=== PATIENT | male | born 1995 | race Caucasian/White ===

== ENCOUNTER 2017-07-17 09:58 | Emergency (ER) | payer BC, OTHER ==
[~2017-07-17] VITALS: Ht 185.4 cm; Wt 111.0 kg
[~2017-07-17 09:58] MED LIST: XANA1TAB6 PO
[2017-07-17 10:02] VITALS: BP 164/97; PULSE 96; RESP 16; TEMP 98.3; O2SAT 99
[2017-07-17] MEDS ORDERED: XANA1TAB2 PO (10:10)
--- NOTE | 2017-07-17 10:46 | PD ---
HPI Chief Complaint: Chest Pain Time Seen by Provider: 10:28 Travel History International Travel<30 days: No Contact w/Intl Traveler<30days: No Traveled to known affect area: No History of Present Illness HPI 22-year-old male came to the emergency room with history of midsternal chest pain that started this morning when he woke up. Patient describes the pain in the center and slightly parasternal both sides. There is no other radiation to the pain. No associated shortness of breath or cough. Pain he describes as slight burning. It's worse when he leans forward. No history of syncopal episode. Currently if he doesn't move the pain is 1 out of 10. Vital signs are stable. He is otherwise a relatively healthy person. He has been having some mid back pain between his shoulder blades for past 6 weeks. That pain is much better today. PFSH Past Medical History Narrative Medical List of his past medical, surgical, social and family history is reviewed from the nursing note. Anxiety: Yes Diminished Hearing: No Immunizations Current: Yes Influenza Vaccination: No Social History Alcohol Use: No Tobacco Use: No Substance Use: No Allergies-Medications (Allergen,Severity, Reaction): Coded Allergies: acetaminophen (Unverified Allergy, Mild, HIVES, 07/17/17) hydrocodone (Unverified Allergy, Mild, HIVES, 07/17/17) Comments List of his allergies reviewed from the nursing note. Reported Meds & Prescriptions Reported Meds & Active Scripts Active Reported Xanax (Alprazolam) 1 Mg Tab 1 Mg PO Q6H PRN Narrative Medication List of his home medications reviewed from the nursing note. Review of Systems Except as stated in HPI: all other systems reviewed are Neg Cardiovascular: Positive: Chest Pain or Discomfort Physical Exam Narrative GENERAL: Awake, alert, no obvious distress SKIN: Focused skin assessment warm/dry. HEAD: Atraumatic. Normocephalic. EYES: Pupils equal and round. No scleral icterus. No injection or drainage. ENT: No nasal bleeding or discharge. Mucous membranes pink and moist. NECK: Trachea midline. No JVD. CARDIOVASCULAR: Regular rate and rhythm. No murmur appreciated. RESPIRATORY: No accessory muscle use. Clear to auscultation. Breath sounds equal bilaterally. GASTROINTESTINAL: Abdomen soft, non-tender, nondistended. Hepatic and splenic margins not palpable. MUSCULOSKELETAL: No obvious deformities. No clubbing. No cyanosis. No edema. NEUROLOGICAL: Awake and alert. No obvious cranial nerve deficits. Motor grossly within normal limits. Normal speech. PSYCHIATRIC: Appropriate mood and affect; insight and judgment normal. Data Data Last Documented VS Orders Orders Electrocardiogram (07/17/17 ) Basic Metabolic Panel (Bmp) (07/17/17 11:09) Complete Blood Count With Diff (07/17/17 11:09) Troponin I (07/17/17 11:09) Lipase (07/17/17 11:09) Chest, Single Ap (07/17/17 11:09) Ecg Monitoring (07/17/17 11:09) Bilateral Bp Monitoring (07/17/17 11:09) Iv Access Insert/Monitor (07/17/17 11:09) Oximetry (07/17/17 11:09) Oxygen Administration (07/17/17 11:09) Sodium Chloride 0.9% Flush (Ns Flush) (07/17/17 11:15) Ed Discharge Order (07/17/17 12:03) Labs Laboratory Tests Test 07/17/17 11:15 White Blood Count 5.2 TH/MM3 Red Blood Count 5.67 MIL/MM3 Hemoglobin 16.6 GM/DL Hematocrit 50.5 % Mean Corpuscular Volume 88.9 FL Mean Corpuscular Hemoglobin 29.3 PG Mean Corpuscular Hemoglobin Concent 32.9 % Red Cell Distribution Width 12.7 % Platelet Count 175 TH/MM3 Mean Platelet Volume 9.0 FL Neutrophils (%) (Auto) 74.4 % Lymphocytes (%) (Auto) 18.2 % Monocytes (%) (Auto) 5.6 % Eosinophils (%) (Auto) 1.2 % Basophils (%) (Auto) 0.6 % Neutrophils # (Auto) 3.8 TH/MM3 Lymphocytes # (Auto) 0.9 TH/MM3 Monocytes # (Auto) 0.3 TH/MM3 Eosinophils # (Auto) 0.1 TH/MM3 Basophils # (Auto) 0.0 TH/MM3 CBC Comment DIFF FINAL Differential Comment Blood Urea Nitrogen 13 MG/DL Creatinine 0.94 MG/DL Random Glucose 100 MG/DL Calcium Level 9.0 MG/DL Sodium Level 140 MEQ/L Potassium Level 4.0 MEQ/L Chloride Level 105 MEQ/L Carbon Dioxide Level 26.8 MEQ/L Anion Gap 8 MEQ/L Estimat Glomerular Filtration Rate 99 ML/MIN Troponin I LESS THAN 0.02 NG/ML Lipase 133 U/L MDM Medical Decision Making Medical Screen Exam Complete: Yes Emergency Medical Condition: Yes Medical Record Reviewed: Yes Interpretation(s) Twelve-lead EKG is reviewed by me. Normal sinus rhythm, normal axis, nonspecific ST-T wave changes. Heart rate of 98 bpm. Differential Diagnosis ACS, atypical chest pain, muscular skeletal chest pain, pericarditis Narrative Course 12:06 PM blood test results of back and within acceptable limits. I'm comfortable discharging this patient home. He does not have any risk factors for coronary artery disease. I explained to the patient that his pain could be musculoskeletal. He is comfortable going home. Procedures EKG Prior to Arrival: No Diagnosis Primary Impression: Atypical chest pain Referrals: Primary Care Physician Additional Instructions: Take Motrin/ibuprofen/Advil for your pain. If symptoms do not resolve in next 2 days follow-up with your primary care. If symptoms worsen return to the ER. Med/Other Pt SpecificInfo: No Change to Meds Disposition: 01 DISCHARGE HOME Condition: Stable Jimena Patel MD Jul 17, 2017 10:46
[2017-07-17] MEDS ORDERED: SODIUM CHLORIDE 0.9% FLUSH 10 ML FLUSH IVF PRN (11:15)
[2017-07-17 11:22] VITALS: BP 182/77; PULSE 97; RESP 18; O2SAT 98
[2017-07-17 11:23] LABS: AUTOMATED NEUTROPHIL # 3.8 TH/MM3 (1.8-7.7); BASOPHIL % 0.6 % (0.0-2.0); EOSINOPHIL # 0.1 TH/MM3 (0-0.4); EOSINOPHIL % 1.2 % (0.0-4.0); HEMATOCRIT 50.5 % (39.0-51.0); HEMO FLAGS DIFF FINAL; LYMPH % 18.2 % (9.0-44.0); LYMPHOCYTE # 0.9 TH/MM3 (1.0-4.8); MEAN CELL VOLUME 88.9 FL (80.0-100.0); MEAN CORPUSCULAR HEMOGLOBIN 29.3 PG (27.0-34.0); MEAN CORPUSCULAR HGB CONC 32.9 % (32.0-36.0); MONO % 5.6 % (0.0-8.0); NEUT % 74.4 % (16.0-70.0); PLATELET COUNT 175 TH/MM3 (150-450); RED BLOOD COUNT 5.67 MIL/MM3 (4.50-5.90); RED CELL DISTRIBUTION WIDTH 12.7 % (11.6-17.2); WHITE BLOOD COUNT 5.2 TH/MM3 (4.0-11.0)
[2017-07-17 11:33] LABS: CHLORIDE 105 MEQ/L (98-107); SODIUM (NA) 140 MEQ/L (136-145)
[2017-07-17 11:36] LABS: ANION GAP 8 MEQ/L (5-15); BICARBONATE 26.8 MEQ/L (21.0-32.0); BLOOD UREA NITROGEN 13 MG/DL (7-18)
[2017-07-17 11:39] LABS: GLOMERULAR FILTRATION RATE 99 ML/MIN (>89)
--- NOTE | 2017-07-17 11:41 | RADRPT ---
EXAM DATE/TIME: 07/17/2017 11:19 [facility] COMPARISON: No previous studies available for comparison. INDICATIONS : Onset of chest pain today MEDICAL HISTORY : None. SURGICAL HISTORY : None. ENCOUNTER: Initial ACUITY: 1 day PAIN SCORE: 6/10 LOCATION: Bilateral chest FINDINGS: A single view of the chest demonstrates the lungs to be symmetrically aerated without evidence of mas s, infiltrate or effusion. The cardiomediastinal contours are unremarkable. Osseous structures are intact. CONCLUSION: No acute disease. Nabil Cope MD on July 17, 2017 at 11:38 Board Certified Radiologist. This report was verified electronically.
[2017-07-17 11:58] VITALS: BP 164/77; PULSE 65; RESP 18; O2SAT 100
--- NOTE | 2017-07-17 22:04 | EKG ---
Date Performed: 07/17/2017 Time Performed: 10:14:39 PTAGE: 22 years EKG: Sinus rhythm WITH SINUS ARRHYTHMIA NORMAL ECG PREVIOUS TRACING : 10/23/2014 20.53 Compared to prior tracing no significant change DOCTOR: Ricky Turner Interpretating Date/Time 07/17/2017 22:03:59
== END 2017-07-17 12:13 | disposition home or self-care (01) ==
LOC: PHED 09:58
DX: R07.89 Other chest pain (principal); F41.9 Anxiety disorder, unspecified; Z88.5 Allergy status to narcotic agent; Z79.899 Other long term (current) drug therapy
CPT/HCPCS: 71010; 80048; 83690; 84484; 85025; 93005